=== PATIENT | female | born 2000 | race Asian ===

== ENCOUNTER → 2025-01-18 14:35 | Outpatient (CLI) | payer OTHER, SELFPAY ==
[2025-01-18 15:48] LABS: Add Manual Diff / Slide Review NO; Basophils Absolute Auto 100 /uL (0-100); Basophils Percent Auto 0.7 % (0-2); Eosinophils Absolute Auto 100 /uL (0-450); Eosinophils Percent Auto 1.4 % (2-4); Hematocrit 38.2 % (36-46); Lymphocytes Absolute Auto 1500 /uL (1100-4500); Mean Corpuscular HGB Conc 34.1 % (30-36); Mean Corpuscular Hemoglobin 29.4 PG (26-34); Mean Corpuscular Volume 86.3 fL (80-100); Monocytes Absolute Auto 400 /uL (0-900); Monocytes Percent Auto 5.8 % (3-14); Neutrophils Absolute Auto 5200 /uL (1500-7000); Neutrophils Percent Auto 71.1 % (50-75); Platelet Count 208 X10^3/uL (150-400); Red Blood Cell Count 4.42 X10^6/uL (4.0-5.2); Red Cell Distribution Width 13.8 % (11.6-14.8); White Blood Cell Count 7.3 X10^3/uL (4.5-11.0)
[2025-01-18 15:57] LABS: Natera Collection Specimen Collected
[2025-01-18 16:38] LABS: Appearance Urine UA SL CLOUDY; Bilirubin Urine UA NEGATIVE (NEGATIVE); Color Urine UA YELLOW; Glucose Urine UA NEGATIVE (Negative); Ketones Urine UA NEGATIVE (NEGATIVE); Leukocyte Esterase Urine UA NEGATIVE (NEGATIVE); Nitrite Urine UA NEGATIVE (Negative); Occult Blood Urine UA NEGATIVE (Negative); Protein Urine UA TRACE (Negative); Urobilinogen Urine UA 0.2 E.U./dL (0.2)
[2025-01-18 17:02] LABS: Hepatitis B Surface Antigen NEGATIVE s/c (NEGATIVE); Rubella Antibody IgG 41.8 IU/mL (>15)
[2025-01-18 17:09] LABS: Amorphous Sediment Urine 4+; Bacteria Urine Moderate (10-30); RBC Urine None Seen (0-5/HPF); Squamous Epithelial Cell Urine 1-5 /HPF (0-5/HPF); Urine Volume 10mL (spun); WBC Urine None Seen (0-5/HPF)
[2025-01-18 17:10] LABS: Culture Indicated Urine Cult Not Indicated
[2025-01-18 17:12] LABS: HIV 1 & 2 Ab/Ag 4th Gen Combo NEGATIVE (NEGATIVE); Hep C Virus Ab w/Reflex Quant NEGATIVE s/c (NEGATIVE)
== END ==
PROVIDERS: Referring Provider Student in an Organized Health Care Education/Training Program; Visit Provider Student in an Organized Health Care Education/Training Program
DX: Z34.01 Encounter for supervision of normal first pregnancy, first trimester (principal)
CPT/HCPCS: 36415; 80055; 81003; 81015; 86787; 86803; 86850; 86900; 86901; 87086; 87389

== ENCOUNTER → 2025-03-16 07:29 | Outpatient (CLI) | payer OTHER, SELFPAY ==
--- NOTE | 2025-03-16 07:31 | DI.US.S_ITS ---
PROCEDURE: US OB >= 14 WEEKS FETUS INDICATIONS: anatomy OUTSIDE/PRIOR DATING DATA: Last menstrual period (LMP): Unknown. LMP-based estimated date of delivery (SHANE): 08/02/2025. First dating scan (date and location): 12/25/2024. Estimated date of delivery (SHANE) from first dating scan: 07/23/2025. The calculations are made using the clinical SHANE of 08/02/2025. TECHNIQUE: Real-time scanning was performed of the fetus, with image documentation and biometric measurements. Endovaginal scanning: Not obtained COMPARISON: None. FINDINGS: General: A single living intrauterine gestation is present. Presentation: Breech. Placenta: Placental position is posterior , without previa. Amniotic fluid index: 13.3 cm, normal range is 5-24 cm. Single deepest vertical pocket is 3.9 cm. heart rate: 135 beats per minute. Maternal cervical canal: 3.7 cm long. Normal lower limit is 2.5 cm. biometrics: Biparietal diameter: 4.6 cm 19 weeks 6 days Head circumference: 16.8 cm 19 weeks 3 days Abdominal circumference: 16.1 cm 21 weeks 1 day Femur length: 3.1 cm 19 weeks 4 days Clinically estimated gestational age: 20 weeks 1 day Composite gestational age from present scan: 20 weeks 0 days Estimated weight and percentile: 946 g 55th percentile Anatomic survey: Neuro: Ventricles are non-dilated at less than 10 mm. Cisterna magna is normal at 3-11 mm. Cerebellum is normal in size and morphology. Nuchal skin fold: Normal at less than 6 mm between 14-21 weeks gestational age. Face: Nose and lips, facial profile are normal. Spine: No evidence for spina bifida. Heart: 4-chambered heart is present, with normal ventricular outflow tracts. Diaphragm: Diaphragm is intact. Stomach: Left-sided stomach is present. Kidneys: No hydronephrosis. Normal is less than 5 mm in 2nd trimester, less than 7 mm in 3rd trimester. Cord: 3-vessel cord has orthotopic insertion. Bladder: Normal in size. Extremities: All 4 extremities identified. IMPRESSION: Single live intrauterine with ultrasound gestational age 20 weeks 0 days. Anatomy is within normal limits. We strive to produce accurate, complete, and clear reports of imaging services. To assist us in improving patient care, this report was composed using standard report templates and voice recognition software. Therefore, it may contain abnormal punctuation, insertions and/or omissions. Occasional wrong-word or sound-alike substitutions may occur. Though we review the report and make efforts to correct it, we do recommend that the report be read carefully in proper context to recognize any text inaccuracies. Dictated by: Imelda Nazario M.D. on 03/16/2025 at 15:54 Approved by: Imelda Nazario M.D. on 03/16/2025 at 15:56
== END ==
PROVIDERS: PCP Student in an Organized Health Care Education/Training Program; Referring Provider Student in an Organized Health Care Education/Training Program; Visit Provider Student in an Organized Health Care Education/Training Program
DX: Z34.92 Encounter for supervision of normal pregnancy, unspecified, second trimester (principal); Z3A.20 20 weeks gestation of pregnancy; Z36.89 Encounter for other specified antenatal screening
CPT/HCPCS: 76811

== ENCOUNTER → 2025-04-16 14:16 | Outpatient (CLI) | payer OTHER, SELFPAY ==
[2025-04-16 16:49] LABS: GTT (PREG) 1 Hour PP 50gm Dose 90 mg/dL (76-139)
[2025-04-16 17:07] LABS: Hematocrit 32.5 % (36-46); Hemoglobin 11.2 g/dL (12.0-16.0)
== END ==
PROVIDERS: PCP Student in an Organized Health Care Education/Training Program; Referring Provider Student in an Organized Health Care Education/Training Program; Visit Provider Student in an Organized Health Care Education/Training Program
DX: Z34.82 Encounter for supervision of other normal pregnancy, second trimester (principal); Z3A.24 24 weeks gestation of pregnancy
CPT/HCPCS: 36415; 82950; 85014; 85018

== ENCOUNTER 2025-04-20 11:39 | Outpatient (CLI) | payer OTHER, SELFPAY | END 2025-04-20 12:34 | disposition home or self-care (01) | LOC: OB 04-23 07:34 | PROVIDERS: PCP Student in an Organized Health Care Education/Training Program; Referring Provider Family Medicine; Visit Provider Family Medicine | DX: O36.8120 Decreased fetal movements, second trimester, not applicable or unspecified (principal); Z3A.25 25 weeks gestation of pregnancy | CPT/HCPCS: 59025; G0378; G0379 ==

== ENCOUNTER → 2025-07-09 13:56 | Outpatient (CLI) | payer OTHER, SELFPAY ==
[2025-07-10 13:47] LABS: Strep Grp B PCR POS for Grp B Strep
== END ==
PROVIDERS: PCP Student in an Organized Health Care Education/Training Program; Visit Provider Student in an Organized Health Care Education/Training Program
DX: Z3A.36 36 weeks gestation of pregnancy (principal)
CPT/HCPCS: 87653

== ENCOUNTER 2025-07-25 14:40 | Inpatient (IN) | payer OTHER, SELFPAY ==
[2025-07-25] MEDS: AMPICILLIN 2,000 MG in SODIUM CHLORIDE 0.9% 100 ML 200 MG IV (15:21)
[2025-07-25] MEDS: LACTATED RINGERS 1,000 ML 100 ML IV (15:21)
[2025-07-25 15:42] LABS: Add Manual Diff / Slide Review NO; Hematocrit 39.2 % (36-46); Hemoglobin 13.1 g/dL (12.0-16.0); Lymphocytes Absolute Auto 1300 /uL (1100-4500); Mean Corpuscular HGB Conc 33.5 % (30-36); Mean Corpuscular Hemoglobin 30.7 PG (26-34); Mean Corpuscular Volume 91.6 fL (80-100); Platelet Count 197 X10^3/uL (150-400)
[2025-07-25 16:17] VITALS: BP 130/75
[2025-07-25 16:38] LABS: Alanine Aminotransferase 18 IU/L (<35); Albumin 3.9 g/dL (3.5-5.0); Albumin Globulin Ratio 1.1 (1.0-2.8); Alkaline Phosphatase 233 U/L (38-126); Blood Urea Nitrogen 8 mg/dL (7-17); Calcium 8.8 mg/dL (8.4-10.2); Carbon Dioxide 24 mmol/L (22-32); Chloride 102 mmol/L (98-107); Estimated Glomerular Filt Rate > 60 mL/min (>60); Globulin 3.4 g/dL (1.7-4.1); Glucose 81 mg/dL (70-99); HEMOLYSIS 34 (0-50); Potassium 3.7 mmol/L (3.4-5.1); Sodium 133 mmol/L (137-145); Total Protein 7.3 g/dL (6.3-8.2)
[2025-07-25] MEDS: AMPICILLIN 1,000 MG in SODIUM CHLORIDE 0.9% 100 ML 200 MG IV (18:56)
--- NOTE | 2025-07-25 19:29 | PM.OBHP.IH.1 ---
OB HPI Date/Time Date of admission: 07/25/25 History of Present Condition Chief complaint: LABOR SHANE Calculator Estimated Delivery Date Method Current WG Current Estimate 08/02/25 LMP (Certain) 38w 6d : 1 Narrative: This is a 25 yo G1 at 38w6d here with spontaneous labor. complicated by GBS +. Membranes intact. care: none Dating criteria OB: LMP confirmed by 1st trimester US Ultrasounds: normal 1st trimester US Obstetrical complications: none Medical complications OB: none Preadmission Labs Last OB Lab Results: Blood Type A Positive Today, 15:30 Antibody Screen Negative Today, 15:30 Hct, (36-46) 39.2 % Today, 15:30 Hgb, (12.0-16.0) 13.1 g/dL Today, 15:30 Hep Bs Antigen, (NEGATIVE) Negative s/c 01/18/25, 14:57 Hepatitis C Antibody, (NEGATIVE) Negative s/c 01/18/25, 14:57 Rubella Antibody, (>15) 41.8 IU/mL 01/18/25, 14:57 VZV IgG Antibody, (Non Reactive) Non reactive 01/18/25, 14:57 Glucose 1 Hr 50 gm, (76-139) 90 mg/dL 04/16/25, 15:23 Group B Strep (PCR) Pos for grp b strep H 07/09/25, 14:00 Genetic Screens: Cell-free DNA: Normal Evaluation Evaluation Baseline heart rate: 145 Variability: Moderate (6-25) monitor accelerations: Present Monitor Decelerations: Absent Uterine Contraction Intensity: Moderate Category of Tracing: Reactive Status: Category l Dilation (cm): 5 Effacement (%): 90 Dilation: >/=5 cm Effacement: >/=80% station: -1 Position of cervix: posterior Consistency: soft Mccracken score: 10 [facility] Medical History (Updated 06/14/25 @ 13:12 by Cortney Brown DO) Vaginal bleeding during , antepartum Surgical History (Updated 11/30/24 @ 13:06 by Elizabeth Bee RN) No pertinent past surgical history Family History (Updated 11/30/24 @ 13:09 by Elizabeth Bee RN) Father Age: 57 Hypertension Mother Age: 48 No problems noted. Brother Age: 26 No problems noted. Sister Age: 23 No problems noted. 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[employer]) current occupational exposures/hazards: No special александр needs: No travel history: recent ([facility]) seatbelt use: always helmet use: Yes water heater temp set < 120 deg: Yes working smoke detector in home: Yes fire extinguisher in home: Yes carbon monox detector in home: Yes firearms in home: Yes firearms unloaded and locked: Yes do you feel safe at home: Yes Smoking Status: Never smoker second hand exposure: No alcohol intake: never substance use type: does not use during the past year weight has: remained stable well-balanced diet: about half the time daily servings fruits/ve-4 caffeine: No Type(s) of exercise: walking Meds Home Medications and Allergies Home Medications ?Medication ?Instructions ?Recorded ?Confirmed ?Type vits no.126-ferrous fum 1 tab PO DAILY #90 tabs 01/22/25 07/25/25 Rx 28 mg iron-folic acid 800 mcg tablet (Classic ) Allergies Allergy/AdvReac Type Severity Reaction Status Date / Time No Known Drug Allergies Allergy Verified 07/25/25 16:47 Review of Systems Review of Systems ROS: Yes All systems reviewed with the patient and are negative except as otherwise documented Objective Labs 07/25/25 15:30 07/25/25 15:30 Labs: Laboratory Results - last 24 hr 07/25/25 15:30 WBC 9.5 RBC 4.28 Hgb 13.1 Hct 39.2 MCV 91.6 MCH 30.7 MCHC 33.5 RDW 13.2 Plt Count 197 Neut % (Auto) 78.8 H Lymph % (Auto) 14.1 L [place] % (Auto) 5.4 Eos % (Auto) 0.7 L Baso % (Auto) 1.0 Neut # (Auto) 7500 H Lymph # (Auto) 1300 [place] # (Auto) 500 Eos # (Auto) 100 Baso # (Auto) 100 Sodium 133 L Potassium 3.7 Chloride 102 Carbon Dioxide 24 BUN 8 Creatinine 0.78 Estimated GFR > 60 BUN/Creatinine Ratio 10.3 Glucose 81 Calcium 8.8 Total Bilirubin 0.6 AST 33 ALT 18 Alkaline Phosphatase 233 H Total Protein 7.3 Albumin 3.9 Globulin 3.4 Albumin/Globulin Ratio 1.1 Blood Type A Positive Antibody Screen Negative Assessment and Plan Assessment and Plan Assessment and Plan narrative: 25 yo G1 at 38w6d here with spontaneous labor. GBS pos. uncomplicated. -admit for labor -start ampicillin -anticipate vaginal delivery Time-Based Coding :: 30 minutes spent with patient and on the chart (including review of chart, obtaining history, exam, reviewing outside data, placing orders, documenting exam and treatment plan, and counseling patient) on 07/25/2025.
[2025-07-25] MEDS: fentaNYL 100 MCG/2 ML INJ IV (20:55)
[2025-07-25] MEDS: LIDOCAINE 1% 20 ML INJ (21:00)
--- NOTE | 2025-07-25 21:41 | PM.OBPRVD ---
Labor & Delivery Delivery date: 07/25/25 Delivery Time: 20:35 Intrapartal Events: None Cervical ripening method: none Induction method: none Delivery augmentation: rupture of membranes Delivery monitor: external FHT Route of delivery: L&D Laceration Description: Periurethral - 3rd Degree Delivery repair: vicryl Estimated blood loss (mL): 300 Anesthesia Type: Epidural and None Narrative: The patient progressed to C/C/+2 with AROM augmentation and epidural anesthesia. After approximately 1 hour of maternal pushing efforts, the delivered in OA position and restituted VON. The anterior shoulder delivered with gentle downward pressure. The posterior shoulder and rest of body delivered with ease. The cord was doubly clamped and cut after a 5 min delay with the infant placed on maternal abdomen. The placenta delivered spontaneously and was intact with a 3-vessel cord. The fundus was noted to be firm with bimanual massage and pitocin. Inspection of the cervix, vagina, and perineum was notable for a third degree laceration. Dr. Brown (OBGYN) was present in hospital and asked to assess for possible 4th degree. No 4th degree was noted. Repair was performed by Dr. Brown (procedure note to follow) under nitrous oxide with IV fentanyl for pain control. At the end of the repair, all tissues noted to be hemostatic. All sponges were removed from the vagina. The patient tolerated delivery well and remained in the labor room with the at the bedside. Plan for aftercare: Routine care
--- NOTE | 2025-07-25 22:10 | P.PCN_ITS ---
Procedures Date/Time Date of procedure: 07/25/25 Time of procedure: 21:00 General Procedure description: Patient is a G1 now P1001 s/p unmedicated vaginal delivery. Called to patient bedside by delivering physician to assess for possible 4th degree laceration. Attempted evaluation but patient too uncomfortable to allow for thorough evaluation. Patient given IV fentanyl 100mg and nitrous gas to assist with pain management. I was then able to assess the perineal laceration. There was a complete 3rd degree laceration but anal mucosa appeared completely intact. 4th degree laceration ruled out. The area was injected with 1% lidocaine - 20cc given. 3-O vicryl was used to approximate the anal sphincter with four interrupted stitches. Attention then moved to the vaginal laceration. 2-0 vicryl used to repair the remaining 2nd degree laceration in usual fashion. Patient overall tolerated the procedure well. Patient and baby resting in room together. Complications: none [employer] Document charge(s): Yes
[2025-07-25] MEDS: LANOLIN OINT 7 GM 1 APPLIC TOP (23:38)
[2025-07-25] MEDS: DERMOPLAST SPRAY 20% 60 ML 1 SPRAY TOP (23:38)
[2025-07-25] MEDS: IBUPROFEN 600 MG TABLET PO (23:39)
--- NOTE | 2025-07-26 09:44 | P.DS_ITS ---
Discharge Providers Provider Date of admission: 07/25/25 14:40 Discharge Date: 07/27/25 Primary care physician: Kayleigh Ramsey MD Consults: 07/25/25 15:00 Consult to Anesthesiology Urgent Comment: Consulting Provider: Emilie Valentine Reason for consultation: Epidural 07/25/25 22:56 Consult to Cable Strander Routine Comment: Discharge provider: Kayleigh Ramsey MD Summary Hospital Course Date Patient Seen: 07/26/25 Diagnoses: Term Hospital Course: This is a 25 yo G1 now P1 who presented in spontaneous labor at 38w6d. She progressed to complete without anesthesia or intervention. Delivery was augmented with AROM. She did receive adequate ampicillin for GBS positive status. She pushed for an hour and delivered a viable male . She had a 3rd degree perineal laceration that was repaired by OBGYN Dr. Brown. In the period, she recovered well. She received scheduled stool softeners. She was ambulating and voiding without difficulty. She did have elevated blood pressures and was started on nifedipine 30 mg XR. Labs were negative for pre- eclampsia. She will follow up in 3 days for BP check. Peripartum Data Infant Delivery Method: Natural Vaginal Laceration Description: Perineal - 3rd Degree complications: none Status at Discharge Cognitive/behavioral status at discharge: oriented Functional status at discharge: independent ambulation Overall status at discharge: patient is back to baseline Time Spent with Patient Time attestation: Total time spent providing and/or coordinating discharge services: 30 minutes Time spent: Greater than 30 minutes Objective Labs 07/27/25 11:10 07/27/25 11:10 Labs: Laboratory Results - last 24 hr 07/25/25 15:30 WBC 9.5 RBC 4.28 Hgb 13.1 Hct 39.2 MCV 91.6 MCH 30.7 MCHC 33.5 RDW 13.2 Plt Count 197 Neut % (Auto) 78.8 H Lymph % (Auto) 14.1 L [place] % (Auto) 5.4 Eos % (Auto) 0.7 L Baso % (Auto) 1.0 Neut # (Auto) 7500 H Lymph # (Auto) 1300 [place] # (Auto) 500 Eos # (Auto) 100 Baso # (Auto) 100 Sodium 133 L Potassium 3.7 Chloride 102 Carbon Dioxide 24 BUN 8 Creatinine 0.78 Estimated GFR > 60 BUN/Creatinine Ratio 10.3 Glucose 81 Calcium 8.8 Total Bilirubin 0.6 AST 33 ALT 18 Alkaline Phosphatase 233 H Total Protein 7.3 Albumin 3.9 Globulin 3.4 Albumin/Globulin Ratio 1.1 Blood Type A Positive Antibody Screen Negative Exam Narrative Exam Narrative: NAD, resting comfortably in bed Discharge Plan Discharge Plan Patient Disposition: Home Discharge orders & Medications Prescriptions: New acetaminophen 325 mg Tablet 650 mg PO Q6H PRN (Reason: Pain, Mild (1-3)) Qty: 30 0RF docusate sodium 100 mg Capsule 100 mg PO BID Qty: 60 0RF nifedipine 30 mg Tablet Extended Release 24hr 30 mg PO DAILY Qty: 30 0RF hydrocodone-acetaminophen 5-325 mg Tablet 1 tab PO Q4H PRN (Reason: Pain, Moderate (4-6)) Qty: 10 0RF ibuprofen 600 mg Tablet 600 mg PO Q6H PRN (Reason: Pain (Scale Score 1-3)) Qty: 60 0RF Continued Classic 28 mg iron- 800 mcg tablet 1 tab PO DAILY Qty: 90 0RF Follow up/Referrals: Kayleigh Ramsey MD [Primary Care Provider, Family Practice] - 07/30/25 2:00 pm Referral Note: Your 6 week appointment will be scheduled on Wednesday at your appointment! :) Visit Report/Discharge Packet Stand Alone Forms: Patient Portal/API, Stroke Signs & Symptoms Discharge Data Primary Care Provider: Kayleigh Ramsey
--- NOTE | 2025-07-26 17:11 | PM.OBPN.1 ---
Subjective - OB Subjective Patient comments: no complaints and pain well controlled baby status: doing well and other (some issues feeding ) feeding status: exclusively breast feeding Narrative: This is a 25 yo G1 now P1 who delivered at 38w6d following spontaneous labor. GBS pos with adequate treatment. Third degree tear, pain well controlled. Ambulating, urinating without difficulty. Exam Narrative Exam Narrative: NAD, resting comfortably in bed Objective Labs 07/25/25 15:30 07/25/25 15:30 Assessment & Plan Plan day: 1 plan OB: routine care Comments: Difficulty with and 3rd degree laceration. Will keep one additional night for feeding support and pain control. Time-Based Coding :: 30 minutes spent with patient and on the chart (including review of chart, obtaining history, exam, reviewing outside data, placing orders, documenting exam and treatment plan, and counseling patient) on 07/26/2025.
[2025-07-27] MEDS: NIFEdipine 30 MG TAB ER PO (10:52)
[2025-07-27 11:16] LABS: Add Manual Diff / Slide Review NO; Hematocrit 31.3 % (36-46); Hemoglobin 10.6 g/dL (12.0-16.0); Lymphocytes Absolute Auto 2700 /uL (1100-4500); Mean Corpuscular HGB Conc 33.8 % (30-36); Mean Corpuscular Hemoglobin 31.0 PG (26-34); Mean Corpuscular Volume 91.8 fL (80-100); Platelet Count 185 X10^3/uL (150-400)
[2025-07-27 11:39] LABS: Alanine Aminotransferase 23 IU/L (<35); Albumin 3.6 g/dL (3.5-5.0); Albumin Globulin Ratio 1.2 (1.0-2.8); Alkaline Phosphatase 155 U/L (38-126); Blood Urea Nitrogen 16 mg/dL (7-17); Calcium 8.7 mg/dL (8.4-10.2); Carbon Dioxide 27 mmol/L (22-32); Chloride 103 mmol/L (98-107); Estimated Glomerular Filt Rate > 60 mL/min (>60); Globulin 2.9 g/dL (1.7-4.1); Glucose 81 mg/dL (70-99); HEMOLYSIS < 15 (0-50); Potassium 3.9 mmol/L (3.4-5.1); Sodium 135 mmol/L (137-145); Total Protein 6.5 g/dL (6.3-8.2); Uric Acid 5.7 mg/dL (2.5-6.2)
[2025-07-27 12:44] VITALS: BP 131/91; PULSE 78; RESP 18; TEMP 36.7
== END 2025-07-27 16:22 | disposition home or self-care (01) | DRG 768 ==
PROVIDERS: Admitting Provider Student in an Organized Health Care Education/Training Program; PCP Student in an Organized Health Care Education/Training Program; Referring Provider Student in an Organized Health Care Education/Training Program; Visit Provider Student in an Organized Health Care Education/Training Program
DX: O99.824 Streptococcus B carrier state complicating childbirth (principal); Z37.0 Single live birth; Z3A.38 38 weeks gestation of pregnancy; O70.20 Third degree perineal laceration during delivery, unspecified
CPT/HCPCS: 36415; 46750; 59050; 59400; 80053; 84550; 85025; 86850; 86900; 86901; G0379; J0290; J3010; J7050; J7120